=== PATIENT | male | born 1985 | race Caucasian/White ===

== ENCOUNTER 2024-11-03 10:15 | Emergency (ER) | payer OTHER, SELFPAY ==
[2024-11-03] VITALS (7 sets, daily range): BP systolic 133–161; BP diastolic 81–97; PULSE 68–96; RESP 13; TEMP 36.9–37.2; O2SAT 92–99; BMI 34.2
--- NOTE | 2024-11-03 10:26 | DI.RAD.S_ITS ---
PROCEDURE: XR KNEE LT 3V INDICATIONS: knee pain,swelling TECHNIQUE: 3 views of the knee were acquired. COMPARISON: None. FINDINGS: Bones: No fractures or dislocations. Ossification adjacent to the tibial tubercle which could represent sequela of [place]-Schlatter's disease. No suspicious bony lesions. Soft tissues: No joint effusion. No suspicious soft tissue calcifications. IMPRESSION: No acute bony abnormality or significant effusion. Dictated by: Carin Tatum MD, PhD on 11/03/2024 at 10:40 Approved by: Carin Tatum MD, PhD on 11/03/2024 at 10:41
--- NOTE | 2024-11-03 10:58 | ED_ITS ---
HPI - Extremity Problem General Chief complaint: Extremity Problem,Nontraumatic Stated complaint: LT Knee problems Time Seen by Provider: 11/03/24 10:49 Source: patient Mode of arrival: Ambulatory History of Present Illness HPI Narrative: Patient sent here from [facility] for evaluation of left knee pain redness swelling warmth. Started this past Friday. Patient states see stubbed his left small toe last . His placed some ointment on the small toe. It got better through the weekend but Friday his left foot flared up again and thought it was gout flaring up and he took his colchicine without relief. . He states his toe and foot isn't as bad today with pain or redness but his left knee is a problem. He has been ambulatory on his knee at the [facility]. But has pain with ambulation and weight-bearing. Patient able to flex and extend to 90? flexion and fully extend the knee. No prior history of knee surgery or injury to the knee. Prior history of gout or arthritis to the knee. Related Data Previous Rx's Medication Instructions Recorded indomethacin 50 mg capsule 50 mg PO TID #10 caps 11/03/24 Allergies Allergy/AdvReac Type Severity Reaction Status Date / Time naproxen [From Aleve] Allergy Verified 11/03/24 10:22 Review of Systems Review of Systems Narrative: GENERAL: Negative chills, fatigue, malaise, fever, sweats. HEENT: Negative sinus pain, ear pain, sore throat RESPIRATORY: Negative dyspnea, cough CARDIOVASCULAR: Negative chest pain, palpitations GASTROINTESTINAL: Negative vomiting, nausea, abdominal pain : Negative dysuria, frequency, hematuria MUSCULOSKELETAL: Positive muscle or bony pain SKIN: Negative rash, skin lesions NEUROLOGIC: Negative weakness, numbness ROS Unobtainable: All systems reviewed & are unremarkable except as noted in HPI and below Patient History Social History Smoking Status: Unknown if ever smoked Smoking Status: Unknown if ever smoked Exam Narrative Exam Narrative: GENERAL: in no distress, not toxic not dyspneic HEAD: Normocephalic. EYES: Pupils equal round ENT: Mucous membranes moist. EXTREMITIES: No gross deformities. Examination left lower extremity, patient thigh to toe exposed. There is no erythema edema tenderness to the dorsum of the foot or ankle. Able to flex and extend without difficulty. At the ankle. Strong pedal pulse brisk cap refills. No crepitus. Examination of the left knee patient able to actively flex and extend but does have pain. Zeinab fully extend. Painful when flexing. There is mild erythema edema of the prepatellar area. Nontender calf. Leg is warm soft pink no crepitus. NEURO: AOx4. Clear speech SKIN: Warm and dry PSYCH: Not anxious, is cooperative Initial Vital Signs Initial Vital Signs: Vital Signs Temperature 99 F 11/03/24 10:16 Pulse Rate 96 H 11/03/24 10:16 Respiratory Rate 13 11/03/24 10:16 Blood Pressure 157/97 H 11/03/24 10:16 Pulse Oximetry 99 11/03/24 10:16 Oxygen Delivery Method Room Air 11/03/24 10:16 Course Orders Ordered: Discontinued Medications Ketorolac Tromethamine (Ketorolac 30 Mg/Ml Vial) 15 mg IV NOW ONE Stop: 11/03/24 11:00 Last Admin: 11/03/24 11:14 Dose: 15 mg Documented By: KAMILAH Vital Signs Vital signs: Vital Signs - 8 hr 11/03/24 10:16 11/03/24 10:24 11/03/24 11:57 Temperature 99 F 98.5 F Pulse Rate 96 H Pulse Rate [Left Posterior Tibial] 68 Respiratory Rate 13 Blood Pressure 157/97 H Pulse Oximetry 99 92 Oxygen Delivery Method Room Air Room Air 11/03/24 11:58 11/03/24 11:58 11/03/24 11:58 Temperature Pulse Rate 81 Pulse Rate [Left Posterior Tibial] Respiratory Rate Blood Pressure 161/89 H 161/89 H Pulse Oximetry 98 Oxygen Delivery Method 11/03/24 12:00 11/03/24 12:00 11/03/24 12:30 Temperature Pulse Rate 80 Pulse Rate [Left Posterior Tibial] Respiratory Rate Blood Pressure 154/82 H 141/83 H Pulse Oximetry 98 Oxygen Delivery Method 11/03/24 12:30 11/03/24 13:00 11/03/24 13:00 Temperature Pulse Rate 75 80 Pulse Rate [Left Posterior Tibial] Respiratory Rate Blood Pressure 133/81 Pulse Oximetry 99 99 Oxygen Delivery Method MDM - Extremity (Nontraumatic) Lab Data 11/03/24 10:27 11/03/24 10:27 Labs: Lab Results 11/03/24 Range/Units 10:27 WBC 8.6 (4.5-11.0) X10^3/uL RBC 5.26 (4.5-5.9) X10^6/uL Hgb 15.2 (13.5-17.5) g/dL Hct 43.6 (41-53) % MCV 82.9 (80-100) fL MCH 28.9 (26-34) PG MCHC 34.9 (30-36) % RDW 14.2 (11.6-14.8) % Plt Count 318 (150-400) X10^3/uL Neut % (Auto) 64.1 (50-75) % Lymph % (Auto) 27.2 (25-40) % [place] % (Auto) 7.1 (3-14) % Eos % (Auto) 1.0 L (2-4) % Baso % (Auto) 0.6 (0-2) % Neut # (Auto) 5500 (1292-1667) /uL Lymph # (Auto) 2300 (2801-7154) /uL [place] # (Auto) 600 (0-900) /uL Eos # (Auto) 100 (0-450) /uL Baso # (Auto) 100 (0-100) /uL ESR 11 (0-15) MM/HR Sodium 140 (137-145) mmol/L Potassium 3.8 (3.4-5.1) mmol/L Chloride 105 (98-107) mmol/L Carbon Dioxide 23 (22-32) mmol/L BUN 11 (9-20) mg/dL Creatinine 0.82 (0.66-1.25) mg/dL Estimated GFR > 60 (>60) mL/min BUN/Creatinine Ratio 13.4 (6-22) Glucose 91 (70-100) mg/dL Uric Acid 8.8 H (3.5-8.5) mg/dL Calcium 9.2 (8.4-10.2) mg/dL Total Bilirubin 1.0 (0.2-1.3) mg/dL AST 41 (17-59) IU/L ALT 56 H (<50) IU/L Alkaline Phosphatase 54 (38-126) U/L C-Reactive Protein 2.3 H (<1.0) mg/dL Total Protein 7.9 (6.3-8.2) g/dL Albumin 4.8 (3.5-5.0) g/dL Globulin 3.1 (1.7-4.1) g/dL Albumin/Globulin Ratio 1.5 (1.0-2.8) Imaging Data Extremity x-ray #1: Radiologist's Impression: [address] [address] XRay Report Signed Patient: James López MR#: [id number] : 1985 Acct:[id number] Age/Sex: 39 / M Date of Service: 11/03/24 Loc: ED Accession Number: [id number] Procedure: XR knee LT 3V Ordering Provider: Sam Brumfield MD PROCEDURE: XR KNEE LT 3V INDICATIONS: knee pain,swelling TECHNIQUE: 3 views of the knee were acquired. COMPARISON: None. FINDINGS: Bones: No fractures or dislocations. Ossification adjacent to the tibial tubercle which could represent sequela of [place]-Schlatter's disease. No suspicious bony lesions. Soft tissues: No joint effusion. No suspicious soft tissue calcifications. IMPRESSION: No acute bony abnormality or significant effusion. Dictated by: Carin Tatum MD, PhD on 11/03/2024 at 10:40 Approved by: Carin Tatum MD, PhD on 11/03/2024 at 10:41 [facility] Narrative Medical decision making narrative: Patient sent here from [facility] for evaluation of left knee pain redness swelling warmth. Started this past Friday. Patient states see stubbed his left small toe last . His placed some ointment on the small toe. It got better through the weekend but Friday his left foot flared up again and thought it was gout flaring up and he took his colchicine without relief. . He states his toe and foot isn't as bad today with pain or redness but his left knee is a problem. [facility] But has pain with ambulation and weight-bearing. Patient able to flex and extend to 90? flexion and fully extend the knee. No prior history of knee surgery or injury to the knee. Prior history of gout or arthritis to the knee. After history and exam, x-ray left knee CBC CMP ESR CRP uric acid Toradol MDM Medical records reviewed: No recent visit for this complaint Differential considered: Includes but not limited to septic joint arthritis gout cellulitis joint effusion Lab Test results independently reviewed as above. Pertinent findings: WBC 8.6 BUN 11 creatinine 0.82 CRP 2.3 uric acid 8.8 ESR 11 Imaging studies independently reviewed: X-ray left knee no acute finding Consultations: None indicated at this time Treatments: Toradol. Re-evaluations: 1:30 p.m.. Updated patient results. Patient states he is not allergic to a leave. he was told the rash may be due to the leave that he took but he only takes it twice a day as. Has small punctate little papules diffusely on the skin. Patient was given crutches for ambulation however he was ambulating without them at discharge on his way out of the department. Mild antalgic gait but no foot drop. He does state he does have colchicine at home to take. Discussion: Appropriate for discharge home. Exam is reassuring. No fever here. Likely not infectious source. Return precautions reviewed. He desires discharge home. Pain is controlled. Crutches provided to help for ambulation. Diagnosis: Gouty flare-up Discharge Plan Departure Patient Disposition: Home Clinical Impression: Gout Qualifiers: Gout site: knee Gout etiology: unspecified cause Chronicity: acute Laterality: left Qualified Code(s): M10.9 - Gout, unspecified Instructions: DI for Gout Activity Restrictions/Additional Instructions: You are likely having a gout flare-up in her knee. The uric acid is slightly elevated and your blood work. Please do not continue ibuprofen or Aleve. Prescription for indomethacin has been provided for you. Please use the crutches when ambulating. Work note has been provided for you. Please see family doctor next week for re-evaluation. Return if worse if any questions or concerns. Prescriptions: New indomethacin 50 mg capsule 50 mg PO TID Qty: 10 0RF Rx Instructions: administer with food or milk Stand Alone Forms: Patient Portal/API/Survey, Work Release Note
[2024-11-03 11:04] LABS: Add Manual Diff / Slide Review NO; Basophils Absolute Auto 100 /uL (0-100); Basophils Percent Auto 0.6 % (0-2); Eosinophils Absolute Auto 100 /uL (0-450); Hematocrit 43.6 % (41-53); Hemoglobin 15.2 g/dL (13.5-17.5); Lymphocytes Absolute Auto 2300 /uL (1100-4500); Lymphocytes Percent Auto 27.2 % (25-40); Mean Corpuscular HGB Conc 34.9 % (30-36); Mean Corpuscular Hemoglobin 28.9 PG (26-34); Mean Corpuscular Volume 82.9 fL (80-100); Monocytes Absolute Auto 600 /uL (0-900); Monocytes Percent Auto 7.1 % (3-14); Neutrophils Absolute Auto 5500 /uL (1500-7000); Neutrophils Percent Auto 64.1 % (50-75); Platelet Count 318 X10^3/uL (150-400); Red Blood Cell Count 5.26 X10^6/uL (4.5-5.9); Red Cell Distribution Width 14.2 % (11.6-14.8); White Blood Cell Count 8.6 X10^3/uL (4.5-11.0)
[2024-11-03 11:14] LABS: Alanine Aminotransferase 56 IU/L (<50); Albumin 4.8 g/dL (3.5-5.0); Albumin Globulin Ratio 1.5 (1.0-2.8); Alkaline Phosphatase 54 U/L (38-126); Aspartate Aminotransferase 41 IU/L (17-59); BUN Creatinine Ratio 13.4 (6-22); Blood Urea Nitrogen 11 mg/dL (9-20); C-Reactive Protein Quant 2.3 mg/dL (<1.0); Calcium 9.2 mg/dL (8.4-10.2); Carbon Dioxide 23 mmol/L (22-32); Chloride 105 mmol/L (98-107); Estimated Glomerular Filt Rate > 60 mL/min (>60); Globulin 3.1 g/dL (1.7-4.1); Glucose 91 mg/dL (70-100); HEMOLYSIS 25 (0-50); Potassium 3.8 mmol/L (3.4-5.1); Sodium 140 mmol/L (137-145); Total Protein 7.9 g/dL (6.3-8.2); Uric Acid 8.8 mg/dL (3.5-8.5)
[2024-11-03] MEDS: KETOROLAC 30 MG/ML VIAL 15 MG IV (11:14)
[2024-11-03 11:43] LABS: Erythrocyte Sedimentation Rate 11 MM/HR (0-15)
== END 2024-11-03 13:34 | disposition home or self-care (01) ==
PROVIDERS: Emergency Provider Emergency Medicine
DX: M10.9 Gout, unspecified (principal)
CPT/HCPCS: 36415; 73562; 80053; 84550; 85025; 85651; 86140; 96374; 99284; J1885